=== PATIENT | male | born 1960 | race Caucasian/White ===

== ENCOUNTER 2019-04-07 07:37 | Emergency (ER) | payer OTHER, SELFPAY ==
[2019-04-07 07:45] VITALS: BP 153/89; PULSE 80; RESP 18; TEMP 36; O2SAT 99
--- NOTE | 2019-04-07 07:47 | ED.ABDPAIN ---
HPI - Abdominal Pain General Chief Complaint: Abdominal Pain Stated Complaint: severe stomach cramping dizziness weakness Time Seen by Provider: 04/07/19 07:40 Source: patient Mode of arrival: ambulatory Limitations: no limitations History of Present Illness HPI narrative: 58-year-old male nonsmoker with benign medical history sharp and stabbing left upper abdominal pain over the course of the morning. He denies any provocation or palliation. He denies any radiation of the pain. He states it is associated with nausea and vomiting. Additionally he has been sweaty, dizzy, weak and lightheaded. He denies any change in medications or diet. He denies any recent antibiotics, travel, or exposure to ill persons. He denies any history of the same. He states his pain is sharp and stabbing and is rather constant. MD complaint: abdominal pain Onset (ago): hour(s) Pain Consistency: constant Location: LUQ Severity: moderate Quality: stabbing Radiation: none Migration to: no migration Relieving factors: nothing Exacerbating factors: nothing Associated symptoms: vomiting and chills Review of Systems Constitutional Reports chills, Denies fever(s), Denies lethargy, Reports poor appetite and Reports weakness Eyes Denies change in vision, Denies eye discharge, Denies irritation and Denies loss of vision ENT Ears, Nose, Mouth, and Throat: Denies change in voice, Denies neck pain and Denies sore throat Cardiovascular Denies chest pain, Denies irregular heart rhythm, Denies lightheadedness, Denies palpitations, Denies dyspnea, Denies dyspnea on exertion and Denies orthopnea Respiratory Denies cough, Denies dyspnea, Denies dyspnea on exertion and Denies wheezing Gastrointestinal Gastrointestinal: Reports abdominal pain, Denies change in bowel habits, Denies diarrhea, Reports nausea and Reports vomiting Genitourinary Denies hematuria, Denies flank pain, Denies urinary incontinence and Denies urinary urgency Musculoskeletal Denies neck pain Integumentary/Breasts Denies pruritus, Denies erythema, Denies rash and Denies wounds Neurologic Denies confusion, Denies loss of vision and Reports weakness Psychiatric Denies anxiety, Denies confusion, Denies depression, Denies homicidal ideation and Denies suicidal ideation Endocrine Denies palpitations Hematologic/Lymphatic Denies easy bruising Allergic/Immunologic Denies wheezing [facility] Social History Smoking Status: Never smoker Social History Smoking Status: Never smoker Exam Narrative Exam Narrative: GENERAL: 58-year-old male appears stated age, clearly unwell and in pain, rubbing his left side abdomen. Pale and sweaty HEAD: Atraumatic. Normocephalic. No temporal or scalp tenderness. EYES: Pupils equal round and reactive. Extraocular motions intact. No scleral icterus. No injection or drainage. ENT: Nose without bleeding, purulent drainage or septal hematoma. Throat without erythema, tonsillar hypertrophy or exudate. Uvula midline. Airway patent. NECK: Trachea midline. No JVD or lymphadenopathy. Supple, nontender, no meningeal signs. CARDIOVASCULAR: Regular rate and rhythm without murmurs, gallops, or rubs. RESPIRATORY: Clear to auscultation. Breath sounds equal bilaterally. No wheezes, rales, or rhonchi. GASTROINTESTINAL: Abdomen soft, mild left-sided tenderness, nondistended. No hepato-splenomegaly, or palpable masses. No guarding. EXTREMITIES: No clubbing, cyanosis, or edema. No joint tenderness, effusion, or edema noted. BACK: Nontender without deformity or crepitance. No flank tenderness. NEURO: AOx3. SKIN: No rash or erythema. Pale and sweaty Initial Vital Signs Initial Vital Signs: Vital Signs Temperature 96.8 F L 04/07/19 07:45 Pulse Rate 80 04/07/19 07:45 Respiratory Rate 18 04/07/19 07:45 Blood Pressure 153/89 H 04/07/19 07:45 Pulse Oximetry 99 04/07/19 07:45 Course Orders Ordered: ED Orders 04/07/19 07:46 XR acute abdomen series Stat 04/07/19 07:53 EKG-12 Lead Stat 04/07/19 08:00 Complete Blood Count AUTO DIFF Stat Comprehensive Metabolic Panel Stat Lipase Stat 04/07/19 08:40 CT abdomen pelvis w con Stat Sodium Chloride (Normal Saline 0.9%) 1,000 mls @ 150 mls/hr IV CONT SINAN Last Admin: 04/07/19 08:03 Dose: 150 mls/hr Discontinued Medications Ondansetron HCl (Zofran) 4 mg IV NOW ONE Stop: 04/07/19 07:47 Last Admin: 04/07/19 08:02 Dose: 4 mg Ondansetron HCl (Zofran) 4 mg IV NOW ONE Stop: 04/07/19 08:56 Last Admin: 04/07/19 08:58 Dose: 4 mg Pantoprazole Sodium (Protonix) 40 mg IV NOW ONE Stop: 04/07/19 07:47 Last Admin: 04/07/19 08:02 Dose: 40 mg Consultations Consultation #1: call to Dr. Huber ([facility]) for admission. Happy to accept, he wants NG, and CT Abd/Pel with oral/IV contrast as patient has no intra-abdominal surgical hx Time: 07:40 Consultation #2: call to [facility] ED to let them know patient will likely come their way. Images pushed. Labs/chart/image on disk in envelope for transport. THIS IS NOT A TRANSFER, but just a courtesy call/heads up Time: 09:04 Vital Signs - 8 hr 04/07/19 07:45 04/07/19 08:36 Temperature 96.8 F L Pulse Rate 80 78 Respiratory Rate 18 10 L Blood Pressure 153/89 H Blood Pressure [Right Arm] 132/81 Pulse Oximetry 99 98 MDM - Abdominal Pain Lab Data Result diagrams: 04/07/19 08:00 04/07/19 08:00 Lab Results 04/07/19 04/07/19 Range/Units 08:00 08:00 WBC 10.0 (4.5-11.0) X10^3/uL RBC 4.93 (4.5-5.9) X10^6/uL Hgb 16.3 (13.5-17.5) g/dL Hct 46.2 (41-53) % MCV 93.6 (80-100) fL MCH 33.1 (26-34) PG MCHC 35.4 (30-36) % RDW 12.4 (11.6-14.8) % Plt Count 328 (150-400) X10^3/uL Neut % (Auto) 81.6 H (50-75) % Lymph % (Auto) 12.3 L (25-40) % Gilliam % (Auto) 5.3 (3-14) % Eos % (Auto) 0.2 L (2-4) % Baso % (Auto) 0.6 (0-2) % Neut # (Auto) 8200 H (7571-4712) /uL Lymph # (Auto) 1200 (5794-2223) /uL Gilliam # (Auto) 500 (0-900) /uL Eos # (Auto) 0 (0-450) /uL Baso # (Auto) 100 (0-100) /uL Sodium 138 (137-145) mmol/L Potassium 3.4 (3.4-5.1) mmol/L Chloride 102 (98-107) mmol/L Carbon Dioxide 24 (22-32) mmol/L BUN 17 (9-20) mg/dL Creatinine 0.80 (0.66-1.25) mg/dL Estimated GFR > 60.0 (>60) mL/min BUN/Creatinine Ratio 21.3 (6-22) Glucose 164 H (70-100) mg/dL Calcium 10.0 (8.4-10.2) mg/dL Total Bilirubin 1.2 (0.2-1.3) mg/dL AST 38 (17-59) IU/L ALT 23 (21-72) IU/L Alkaline Phosphatase 79 (38-126) U/L Total Protein 8.3 H (6.3-8.2) g/dL Albumin 5.0 (3.5-5.0) g/dL Globulin 3.3 (1.7-4.1) g/dL Albumin/Globulin Ratio 1.5 (1.0-2.8) Lipase 118 (23-300) U/L Imaging Data Abdominal x-ray: Radiologist's impression: [address] [address] XRay Report Signed Patient: Michelle Garcia#: [id number] : 9Acct:[id number] Age/Sex: 58 / MDate of Service: 04/07/19 Loc: ED Accession Number: [id number] Procedure: XR acute abdomen series Ordering Provider: Jakob Boykin D.O. PROCEDURE: XR ACUTE ABDOMEN SERIES INDICATIONS: Abdominal pain, NV TECHNIQUE: One view chest and two views of the abdomen were acquired. COMPARISON: None. FINDINGS: Surgical changes and devices: None. Chest: Lungs are clear. Heart size is normal. No pleural effusions. No pneumoperitoneum. Abdomen: A few borderline prominent air-filled loops of small bowel are seen within the upper abdomen demonstrating a couple air fluid levels. Air and stool are seen within the colon. No suspicious calcifications. Visualized solid organ contours appear normal. Bones: No suspicious bony lesions. IMPRESSION: 1. Probable upper abdominal small bowel ileus. Clinical correlation to exclude a developing small bowel obstruction is recommended. The need for followup imaging should be based on clinical grounds. 2. No acute cardiopulmonary process. Dictated by: Edilson Omer M.D. on 04/07/2019 at 7:31 Approved by: Edilson Omer M.D. on 04/07/2019 at 7:32 ECG Data Attestation: I personally reviewed and interpreted this ECG as follows: Interpretation: For normal sinus rhythm, rate 96. No ST segmental elevations or depressions. No ectopy MDM Narrative Medical decision making narrative: 58-year-old male, otherwise healthy with severe left-sided abdominal pain over the course of the day associated with nausea and vomiting. X-rays suggest small bowel obstruction. Labs unremarkable. Symptomatic improvement after Zofran and Protonix. No narcotics given. Patient has capacity to make his own decision, requests discharge so he can proceed to an emergency department closer to home. I offered to call family members or friends to help speak with him, or even come pick him up to drive him down but he refuses. He understands the risks and benefits of this decision. He understands that he may return to our department immediately for continuation of care. Martina placed a call to [facility] emergency in the event that he presents there and current chart, labs, and images sent with patient. He understands that he cannot eat or drink until being seen there. 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 AMA signed/witnessed. Discharge Plan Departure Patient Disposition: Left Against Medical Advice Clinical Impression: Small bowel obstruction Activity Restrictions/Additional Instructions: *You have been diagnosed with [ small bowel obstruction ] *What to do: *Please proceed directly to your Emergency Department of choice. I have contacted an Emergency Physician at [facility] per your request and they are expecting you *DO NOT EAT OR DRINK anything until you are seen by them * if your symptoms return please immediately pull over machine operator, do not drive, call 911 for transport. Driving while vomiting or with intense pain will put you and other drivers at risk * if you change your mind please return and medially to our facility and we will be happy to continue providing you care Stand Alone Forms: Against Medical Advice
[2019-04-07] MEDS: PANTOPRAZOLE 40 MG VIAL IV (08:02)
[2019-04-07] MEDS: ONDANSETRON 4 MG/2 ML INJ IV ×2 (08:02→08:58)
[2019-04-07] MEDS: SODIUM CHLORIDE 0.9% 1,000 ML 150 ML IV (08:03)
[2019-04-07 08:08] LABS: Add Manual Diff / Slide Review NO; Basophils Absolute Auto 100 /uL (0-100); Basophils Percent Auto 0.6 % (0-2); Eosinophils Absolute Auto 0 /uL (0-450); Eosinophils Percent Auto 0.2 % (2-4); Hematocrit 46.2 % (41-53); Hemoglobin 16.3 g/dL (13.5-17.5); Lymphocytes Absolute Auto 1200 /uL (1100-4500); Lymphocytes Percent Auto 12.3 % (25-40); Mean Corpuscular HGB Conc 35.4 % (30-36); Mean Corpuscular Hemoglobin 33.1 PG (26-34); Mean Corpuscular Volume 93.6 fL (80-100); Monocytes Absolute Auto 500 /uL (0-900); Monocytes Percent Auto 5.3 % (3-14); Neutrophils Absolute Auto 8200 /uL (1500-7000); Neutrophils Percent Auto 81.6 % (50-75); Platelet Count 328 X10^3/uL (150-400); Red Blood Cell Count 4.93 X10^6/uL (4.5-5.9); Red Cell Distribution Width 12.4 % (11.6-14.8)
--- NOTE | 2019-04-07 08:15 | ED_ITS ---
HPI - Abdominal Pain General Chief Complaint: Abdominal Pain Stated Complaint: severe stomach cramping dizziness weakness Time Seen by Provider: 04/07/19 07:40 Source: patient Mode of arrival: ambulatory Limitations: no limitations History of Present Illness HPI narrative: 58-year-old male nonsmoker with benign medical history sharp and stabbing left upper abdominal pain over the course of the morning. He denies any provocation or palliation. He denies any radiation of the pain. He states it is associated with nausea and vomiting. Additionally he has been sweaty, dizzy, weak and lightheaded. He denies any change in medications or diet. He denies any recent antibiotics, travel, or exposure to ill persons. He denies any history of the same. He states his pain is sharp and stabbing and is rather constant. MD complaint: abdominal pain Onset (ago): hour(s) Pain Consistency: constant Location: LUQ Severity: moderate Quality: stabbing Radiation: none Migration to: no migration Relieving factors: nothing Exacerbating factors: nothing Associated symptoms: vomiting and chills Review of Systems Constitutional Reports chills, Denies fever(s), Denies lethargy, Reports poor appetite and Reports weakness Eyes Denies change in vision, Denies eye discharge, Denies irritation and Denies loss of vision ENT Ears, Nose, Mouth, and Throat: Denies change in voice, Denies neck pain and Denies sore throat Cardiovascular Denies chest pain, Denies irregular heart rhythm, Denies lightheadedness, Denies palpitations, Denies dyspnea, Denies dyspnea on exertion and Denies orthopnea Respiratory Denies cough, Denies dyspnea, Denies dyspnea on exertion and Denies wheezing Gastrointestinal Gastrointestinal: Reports abdominal pain, Denies change in bowel habits, Denies diarrhea, Reports nausea and Reports vomiting Genitourinary Denies hematuria, Denies flank pain, Denies urinary incontinence and Denies urinary urgency Musculoskeletal Denies neck pain Integumentary/Breasts Denies pruritus, Denies erythema, Denies rash and Denies wounds Neurologic Denies confusion, Denies loss of vision and Reports weakness Psychiatric Denies anxiety, Denies confusion, Denies depression, Denies homicidal ideation and Denies suicidal ideation Endocrine Denies palpitations Hematologic/Lymphatic Denies easy bruising Allergic/Immunologic Denies wheezing [facility] Social History Smoking Status: Never smoker Social History Smoking Status: Never smoker Exam Narrative Exam Narrative: GENERAL: 58-year-old male appears stated age, clearly unwell and in pain, rubbing his left side abdomen. Pale and sweaty HEAD: Atraumatic. Normocephalic. No temporal or scalp tenderness. EYES: Pupils equal round and reactive. Extraocular motions intact. No scleral icterus. No injection or drainage. ENT: Nose without bleeding, purulent drainage or septal hematoma. Throat without erythema, tonsillar hypertrophy or exudate. Uvula midline. Airway patent. NECK: Trachea midline. No JVD or lymphadenopathy. Supple, nontender, no meningeal signs. CARDIOVASCULAR: Regular rate and rhythm without murmurs, gallops, or rubs. RESPIRATORY: Clear to auscultation. Breath sounds equal bilaterally. No wheezes, rales, or rhonchi. GASTROINTESTINAL: Abdomen soft, mild left-sided tenderness, nondistended. No hepato-splenomegaly, or palpable masses. No guarding. EXTREMITIES: No clubbing, cyanosis, or edema. No joint tenderness, effusion, or edema noted. BACK: Nontender without deformity or crepitance. No flank tenderness. NEURO: AOx3. SKIN: No rash or erythema. Pale and sweaty Initial Vital Signs Initial Vital Signs: Vital Signs Temperature 96.8 F L 04/07/19 07:45 Pulse Rate 80 04/07/19 07:45 Respiratory Rate 18 04/07/19 07:45 Blood Pressure 153/89 H 04/07/19 07:45 Pulse Oximetry 99 04/07/19 07:45 Course Orders Ordered: ED Orders 04/07/19 07:46 XR acute abdomen series Stat 04/07/19 07:53 EKG-12 Lead Stat 04/07/19 08:00 Complete Blood Count AUTO DIFF Stat Comprehensive Metabolic Panel Stat Lipase Stat 04/07/19 08:40 CT abdomen pelvis w con Stat Sodium Chloride (Normal Saline 0.9%) 1,000 mls @ 150 mls/hr IV CONT SINAN Last Admin: 04/07/19 08:03 Dose: 150 mls/hr Discontinued Medications Ondansetron HCl (Zofran) 4 mg IV NOW ONE Stop: 04/07/19 07:47 Last Admin: 04/07/19 08:02 Dose: 4 mg Ondansetron HCl (Zofran) 4 mg IV NOW ONE Stop: 04/07/19 08:56 Last Admin: 04/07/19 08:58 Dose: 4 mg Pantoprazole Sodium (Protonix) 40 mg IV NOW ONE Stop: 04/07/19 07:47 Last Admin: 04/07/19 08:02 Dose: 40 mg Consultations Consultation #1: call to Dr. Huber ([facility]) for admission. Happy to accept, he wants NG, and CT Abd/Pel with oral/IV contrast as patient has no intra-abdominal surgical hx Time: 07:40 Consultation #2: call to [facility] ED to let them know patient will likely come their way. Images pushed. Labs/chart/image on disk in envelope for transport. THIS IS NOT A TRANSFER, but just a courtesy call/heads up Time: 09:04 Vital Signs - 8 hr 04/07/19 07:45 04/07/19 08:36 Temperature 96.8 F L Pulse Rate 80 78 Respiratory Rate 18 10 L Blood Pressure 153/89 H Blood Pressure [Right Arm] 132/81 Pulse Oximetry 99 98 MDM - Abdominal Pain Lab Data Result diagrams: 04/07/19 08:00 04/07/19 08:00 Lab Results 04/07/19 04/07/19 Range/Units 08:00 08:00 WBC 10.0 (4.5-11.0) X10^3/uL RBC 4.93 (4.5-5.9) X10^6/uL Hgb 16.3 (13.5-17.5) g/dL Hct 46.2 (41-53) % MCV 93.6 (80-100) fL MCH 33.1 (26-34) PG MCHC 35.4 (30-36) % RDW 12.4 (11.6-14.8) % Plt Count 328 (150-400) X10^3/uL Neut % (Auto) 81.6 H (50-75) % Lymph % (Auto) 12.3 L (25-40) % Sharkey % (Auto) 5.3 (3-14) % Eos % (Auto) 0.2 L (2-4) % Baso % (Auto) 0.6 (0-2) % Neut # (Auto) 8200 H (7736-6134) /uL Lymph # (Auto) 1200 (9833-0050) /uL Sharkey # (Auto) 500 (0-900) /uL Eos # (Auto) 0 (0-450) /uL Baso # (Auto) 100 (0-100) /uL Sodium 138 (137-145) mmol/L Potassium 3.4 (3.4-5.1) mmol/L Chloride 102 (98-107) mmol/L Carbon Dioxide 24 (22-32) mmol/L BUN 17 (9-20) mg/dL Creatinine 0.80 (0.66-1.25) mg/dL Estimated GFR > 60.0 (>60) mL/min BUN/Creatinine Ratio 21.3 (6-22) Glucose 164 H (70-100) mg/dL Calcium 10.0 (8.4-10.2) mg/dL Total Bilirubin 1.2 (0.2-1.3) mg/dL AST 38 (17-59) IU/L ALT 23 (21-72) IU/L Alkaline Phosphatase 79 (38-126) U/L Total Protein 8.3 H (6.3-8.2) g/dL Albumin 5.0 (3.5-5.0) g/dL Globulin 3.3 (1.7-4.1) g/dL Albumin/Globulin Ratio 1.5 (1.0-2.8) Lipase 118 (23-300) U/L Imaging Data Abdominal x-ray: Radiologist's impression: [address] [address] XRay Report Signed Patient: Michelle Garcia#: [id number] : 9Acct:[id number] Age/Sex: 58 / MDate of Service: 04/07/19 Loc: ED Accession Number: [id number] Procedure: XR acute abdomen series Ordering Provider: Jakob Boykin D.O. PROCEDURE: XR ACUTE ABDOMEN SERIES INDICATIONS: Abdominal pain, NV TECHNIQUE: One view chest and two views of the abdomen were acquired. COMPARISON: None. FINDINGS: Surgical changes and devices: None. Chest: Lungs are clear. Heart size is normal. No pleural effusions. No pneumoperitoneum. Abdomen: A few borderline prominent air-filled loops of small bowel are seen within the upper abdomen demonstrating a couple air fluid levels. Air and stool are seen within the colon. No suspicious calcifications. Visualized solid organ contours appear normal. Bones: No suspicious bony lesions. IMPRESSION: 1. Probable upper abdominal small bowel ileus. Clinical correlation to exclude a developing small bowel obstruction is recommended. The need for followup von ging should be based on clinical grounds. 2. No acute cardiopulmonary process. Dictated by: Edilson Omer M.D. on 04/07/2019 at 7:31 Approved by: Edilson Omer M.D. on 04/07/2019 at 7:32 ECG Data Attestation: I personally reviewed and interpreted this ECG as follows: Interpretation: For normal sinus rhythm, rate 96. No ST segmental elevations or depressions. No ectopy MDM Narrative Medical decision making narrative: 58-year-old male, otherwise healthy with severe left-sided abdominal pain over the course of the day associated with nausea and vomiting. X-rays suggest small bowel obstruction. Labs unremarkabl e. Symptomatic improvement after Zofran and Protonix. No narcotics given. Patient has capacity to make his own decision, requests discharge so he can proceed to an emergency department closer to home. I offered to call family members or friends to help speak with him, or even come pick him up to drive him down but he refuses. He understands the risks and benefits of this decision. He understands that he may return to our department immediately for continuation of care. Martina placed a call to [facility] emergency in the event that he presents there and current chart, labs, and images sent with patient. He understands that he cannot eat or drink until being seen there. 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 AMA signed/witnessed. Discharge Plan Departure Patient Disposition: Left Against Medical Advice Clinical Impression: Small bowel obstruction Activity Restrictions/Additional Instructions: *You have been diagnosed with [ small bowel obstruction ] *What to do: *Please proceed directly to your Emergency Department of choice. I have contacted an Emergency Physician at [facility] per your request and they are expecting you *DO NOT EAT OR DRINK anything until you are seen by them * if your symptoms return please immediately assembler for puller over machine, do not drive, call 911 for transport. Driving while vomiting or with intense pain will put you and other drivers at risk * if you change your mind please return and medially to our facility and we will be happy to continue providing you care Stand Alone Forms: Against Medical Advice
[2019-04-07 08:20] LABS: Alanine Aminotransferase 23 IU/L (21-72); Albumin Globulin Ratio 1.5 (1.0-2.8); Alkaline Phosphatase 79 U/L (38-126); Aspartate Aminotransferase 38 IU/L (17-59); BUN Creatinine Ratio 21.3 (6-22); Bilirubin Total 1.2 mg/dL (0.2-1.3); Blood Urea Nitrogen 17 mg/dL (9-20); Carbon Dioxide 24 mmol/L (22-32); Chloride 102 mmol/L (98-107); Estimated Glomerular Filt Rate > 60.0 mL/min (>60); Globulin 3.3 g/dL (1.7-4.1); Glucose 164 mg/dL (70-100); HEMOLYSIS 25 (0-50); Lipase 118 U/L (23-300); Potassium 3.4 mmol/L (3.4-5.1); Sodium 138 mmol/L (137-145); Total Protein 8.3 g/dL (6.3-8.2)
[2019-04-07 08:36] VITALS: BP 132/81; PULSE 78; RESP 10; O2SAT 98
--- NOTE | 2019-04-07 08:51 | PC.NURSE ---
no ng tube now/ per dr. chacon
--- NOTE | 2019-04-07 08:51 | PC.NURSE ---
md spoke with pt regarding need for ct/ per surgeon. pt lives in [place] and wants to go to [facility] which is close to his home. md had pt sign ama and pt agrees to go to hospital. cd of acute abd given to him and x-ray pushed to [facility]. pt alert. states feels much better.
[2019-04-07 09:01] VITALS: BP 131/73; PULSE 85; RESP 21; O2SAT 95
[2019-04-07 09:06] VITALS: BP 131/73; PULSE 80; RESP 14; TEMP 36.2; O2SAT 99
--- NOTE | 2019-04-07 09:11 | PC.NURSE ---
dr. chacon spoke with rep at [facility] that pt wanted.
== END 2019-04-07 09:18 | disposition left against medical advice (07) ==
LOC: ED 09:16
PROVIDERS: Emergency Provider Emergency Medicine
DX: K56.699 Other intestinal obstruction unspecified as to partial versus complete obstruction (principal); R10.32 Left lower quadrant pain
CPT/HCPCS: 36591; 74022; 80053; 83690; 85025; 93005; 93010; 96361; 96374; 96375; 99283; 99285; C9113; J2405